=== PATIENT | male | born 1950 | race African-American/Black ===

== ENCOUNTER 2017-05-31 12:02 | Day surgery (SDC) | payer MEDICARE, OTHER ==
[~2017-05-31] VITALS: Ht 165.1 cm; Wt 75.5 kg
[2017-05-31] MEDS ORDERED: LIPITOR20 MG PO (12:29)
[2017-05-31] MEDS ORDERED: PRINIVIL40 MG PO (12:29)
[2017-05-31] MEDS ORDERED: GLUCOPHAGE500 MG/TAB PO (12:29)
[2017-05-31] MEDS ORDERED: TENORMIN 2525 MG/TAB PO (12:29)
[2017-05-31 12:30] VITALS: BP 126/80; PULSE 62; TEMP 98.3
[2017-05-31 14:35] VITALS: BP 131/87; PULSE 68; TEMP 97.6
[2017-05-31 14:50] VITALS: BP 107/62; PULSE 65
[2017-05-31 15:05] VITALS: BP 97/62; PULSE 64
[2017-05-31 15:20] VITALS: BP 98/70; PULSE 57
== END 2017-05-31 15:40 | disposition home or self-care (01) ==
LOC: SDCO 12:02
DX: Z12.11 Encounter for screening for malignant neoplasm of colon (principal); I10 Essential (primary) hypertension; E11.9 Type 2 diabetes mellitus without complications
CPT/HCPCS: J2250; J3010; J7030

== ENCOUNTER 2021-11-18 10:03 | Day surgery (SDC) | payer MEDICARE, OTHER ==
[~2021-11-18] VITALS: Ht 165.1 cm; Wt 55.7 kg
[~2021-11-18 10:03] MED LIST: GLUCOPHAGE500 MG/TAB PO; LIPITOR20 MG PO; PRINIVIL40 MG PO; TENORMIN 2525 MG/TAB PO
[2021-11-18] MEDS ORDERED: LIPITOR20 MG PO (11:09)
[2021-11-18] MEDS ORDERED: ZESTRIL40 MG PO (11:10)
[2021-11-18] MEDS ORDERED: GLUCOPHAGE500 MG/TAB PO (11:10)
[2021-11-18] MEDS ORDERED: HYGROTON 2525 MG/TAB (11:12)
[2021-11-18 12:03] VITALS: BP 114/69; PULSE 80; TEMP 98.2
[2021-11-18 12:15] LABS: BASO # 0.1 K/mm3 (0.0-0.2); BASO % 1.2 % (0.0-2.0); EOS # 0.1 K/mm3 (0.0-0.7); EOS % 3.1 % (0.0-4.0); GRAN # 2.7 K/mm3 (1.4-6.5); GRAN % 63.5 % (42.2-75.2); HEMATOCRIT 40.2 % (42.0-52.0); HEMOGLOBIN 13.5 g/dl (13.5-18.0); LYMPH % 23.3 % (20.0-51.0); MEAN CELL VOLUME 92 fl (80.0-100.0); MEAN CORPUSCULAR HEMOGLOBIN 31 pg (27-31); MEAN CORPUSCULAR HGB CONC 34 g/dl (33.0-37.0); MEAN PLATELET VOLUME 8.8 fl (7.4-10.4); MONO # 0.4 K/mm3 (0.1-0.6); MONO % 8.4 % (1.7-9.3); PLATELET COUNT 260 K/mm3 (130-400); RED BLOOD COUNT 4.39 M/mm3 (4.20-5.60); REDCELL DISTRIBUTION WIDTH-CV 12.3 % (11.5-14.5)
[2021-11-18 12:21] LABS: CALCIUM 9.4 mg/dL (8.4-10.2); CREATININE, serum 2.12 mg/dL (0.72-1.25); POTASSIUM 4.6 mmol/L (3.5-4.5)
[2021-11-18] MEDS ORDERED: NORCO 325 MG-51 TAB PO (14:08)
[2021-11-18] MEDS ORDERED: MOTRIN 600600 MG/TAB PO ×2 (14:09)
[2021-11-18 14:45] VITALS: BP 131/74; PULSE 77; TEMP 97.7
--- NOTE | 2021-11-18 14:45 | NUR ---
PT TO BAY 6 PER CART FROM PACU. REPORT RECEIVED. VS OBTAINED. CALL LIGHT WITHIN REACH. PT TOLERATING WATER WITHOUT DIFFICULTY.
[2021-11-18 15:00] VITALS: BP 132/64; PULSE 76
--- NOTE | 2021-11-18 15:00 | NUR ---
PT TOLERATING APPLESAUCE AND DENIES ANY OTHER NEEDS.
[2021-11-18 15:15] VITALS: BP 130/67; PULSE 70
[2021-11-18 15:30] VITALS: BP 126/63; PULSE 75
[2021-11-18 15:31] VITALS: BP 131/74; PULSE 78
--- NOTE | 2021-11-18 15:45 | NUR ---
1525-IV DC'D AT THIS TIME. 1530-DISCHARGE EDUCATION COMPLETED WITH PT AND HIS . VERBALIZED UNDERSTANDING OF HOME AND FOLLOW UP CARE. ALL QUESTIONS ANSWERED. DISCHARGE PAPERWORK GIVEN TO PT. 1545-PT OFF UNIT PER WHEELCHAIR. PT DISCHARGED TO HOME WITH PER PERSONAL VEHICLE.
== END 2021-11-18 15:45 | disposition home or self-care (01) ==
LOC: SDCO 10:03
PROVIDERS: Surgery
DX: K40.90 Unilateral inguinal hernia, without obstruction or gangrene, not specified as recurrent (principal); D17.6 Benign lipomatous neoplasm of spermatic cord
CPT/HCPCS: C1781; J0690; J1100; J1885; J2405; J2704; J3010; J7120